=== PATIENT | female | born 1970 | race Two or more races ===

== ENCOUNTER 2018-03-17 22:50 | Emergency (ER) | payer SELFPAY ==
[~2018-03-17] VITALS: Ht 154.9 cm; Wt 47.6 kg
[2018-03-17] MEDS ORDERED: AMOX500T2 PO (23:06)
[2018-03-17] MEDS ORDERED: DEXAMETHASONE SOD PHOSPHATE 4 MG INJ IM ONE (23:45)
[2018-03-17] MEDS ORDERED: diphenhydrAMINE 50 MG/1 ML VIAL IM ONE (23:45)
[2018-03-17] MEDS ORDERED: diphenhydrAMINE 50 MG/1 ML VIAL ONE (23:47)
[2018-03-17] MEDS ORDERED: DEXAMETHASONE SOD PHOSPHATE 10 MG INJ ONE (23:47)
--- NOTE | 2018-03-17 23:49 | NUR ---
Patient discharged to home in stable conditon. Written and verbal after care instructions given. Patient verbalizes understanding of instructions. Ambulated from ER with stable gait. Patient to be driven home by significant other in private vehicle. All belongings with patient.
[2018-03-17 23:51] VITALS: BP 105/71
== END 2018-03-17 23:53 | disposition home or self-care (01) ==
LOC: ER 22:52
DX: Z00.129 Encounter for routine child health examination without abnormal findings (principal); Z79.2 Long term (current) use of antibiotics
CPT/HCPCS: 96372 ×2; 99284; A4663; J1100; J1200